=== PATIENT | male | born 1980 ===

== ENCOUNTER 2019-09-30 18:33 | Emergency (ER) | payer OTHER ==
--- NOTE | 2019-09-30 18:44 | Emergency Department Report ---
Blank Doc - Documentation Documentation: 39-year-old female that presents with left fingers lac. This initial assessment/diagnostic orders/clinical plan/treatment(s) is/are subject to change based on patient's health status, clinical progression and re- assessment by fellow clinical providers in the ED. Further treatment and workup at subsequent clinical providers discretion. Patient/guardians urged not to elope from the ED as their condition may be serious if not clinically assessed and managed. Initial orders include: 1- Patient sent to [facility] for further evaluation and treatment
[2019-09-30] MEDS ORDERED: ONDANSETRON 4 MG/2 ML INJ ONE (18:55)
[2019-09-30] MEDS ORDERED: MORPHINE 4 MG/1 ML INJ ONE (18:56)
[2019-09-30] MEDS ORDERED: MORPHINE 4 MG/1 ML INJ IV ONE (19:01)
[2019-09-30] MEDS ORDERED: ONDANSETRON 4 MG/2 ML INJ IV ONE (19:01)
[2019-09-30] MEDS ORDERED: TETANUS,DIPH,PERTUSS(ACELL) VACCINE 0.5 ML SYRINGE IM ONE (19:05)
--- NOTE | 2019-09-30 19:42 | XRay Report ---
LEFT HAND 3 VIEW(S) INDICATION / CLINICAL INFORMATION: MAIN: Lac to hand; Pt presents with c/o laceration to left index finger and left thumb on hand saw. COMPARISON: None available. FINDINGS: Soft tissue lacerations of the thumb and index finger on the volar/palmar side. No embedded radiopaqu e foreign body. There are foci of soft tissue gas. No displaced fracture. There are tiny ossific dens ities along the radial aspect of the thumb distal phalanx that probably represent bone fragments. The se are seen only on the lateral projection image. No malalignment of the phalanges to suggest a tendo n or caesar injury, although functional testing is advised. Signer Name: Gagan Quinones MD Signed: 09/30/2019 7:37 PM Workstation Name: [id number]
[2019-09-30 19:58] VITALS: BP 144/73
[2019-09-30] MEDS ORDERED: BUPIVACAINE/PF (0.25%) 2.5 MG/ML 30 ML VIAL INFILTRATI ONE (20:17)
[2019-09-30] MEDS ORDERED: BUPIVACAINE/PF (0.25%) 2.5 MG/ML 10 ML VIAL INFILTRATI ONE (20:17)
[2019-09-30] MEDS ORDERED: SODIUM CHLORIDE IRRI 500 ML 500 ML IR ONE (21:47)
[2019-09-30] MEDS ORDERED: SODIUM CHLORIDE 0.9% IRR 500 ML BOTTLE IR ONE (21:47)
--- NOTE | 2019-09-30 23:12 | Emergency Department Report ---
Upper Extremity - HPI Chief Complaint: Wound/Laceration Stated Complaint: LFT HAND CUT Time Seen by Provider: 09/30/19 18:43 ED Review of Systems ROS: Stated complaint: LFT HAND CUT Other details as noted in HPI Comment: All other systems reviewed and negative ED Past Medical Hx - Past Medical History Previous Medical History?: No - Surgical History Past Surgical History?: No - Social History Smoking Status: Never Smoker Substance Use Type: Alcohol Upper Extremity Exam - Exam General: Vital signs noted. No distress. Alert and acting appropriately. Head and Torso: No HEENT Abnormality, No Neck Tenderness, No Chest/Lungs Abnormality, No Abdominal Tenderness, No Back Tenderness Shoulder Exam: Yes Normal Range of Motion in Shoulder, No Shoulder Tenderness, No Clavicle Tenderness, No Shoulder Deformity, No AC Joint Tenderness Arm Exam: No Arm/Humerus Tenderness, No Arm Deformity Elbow: No Elbow Tenderness, No Normal Range of Motion in Elbow, No Elbow Deformity Forearm: No Forearm Tenderness, No Forearm Deformity, No Pain with Pronation, No Pain with Supination Wrist: Yes Normal ROM in Wrist, No Wrist Tenderness, No Wrist Deformity, No Snuffbox Tenderness, No Pain with Axial Thumb Compression Hand: Yes Hand Tenderness, Yes Normal ROM in Digit(s), Yes Tendon Dysfunction, No Hand Deformity, No Digit Tenderness, No Digit(s) Deformity CMS Exam: Yes Broken Skin, No Normal Distal Pulses, No Normal Capillary Refill, No Normal Distal Sensation Hand L/R Front: 1 - Severely irregular jagged macerated laceration to the thumb 3 cm 2 - Irregular deep laceration jagged 5 cm ED Course Vital Signs 09/30/19 09/30/19 09/30/19 18:43 19:09 19:39 Temperature 98.6 F Pulse Rate 74 Respiratory 20 18 18 Rate Blood Pressure 136/82 [Left] O2 Sat by Pulse 97 Oximetry 09/30/19 19:40 Temperature 98.1 F Pulse Rate 71 Respiratory 18 Rate Blood Pressure 144/73 [Left] O2 Sat by Pulse 95 Oximetry - Procedure Description Procedures done: There was prepped and draped in sterile fashion and wound was irrigated with copious amount of saline. Anesthesia achieved with bupivacaine 0.25% the wound edges were revised sutures simple interrupted fashion for partial wound closure unable achieve approximation due to degree of loss skin and wound with [place] was placed over the avulsed aspect of the lip of the laceration. Critical care attestation.: If time is entered above; I have spent that time in minutes in the direct care of this critically ill patient, excluding procedure time. ED Disposition Clinical Impression: Finger laceration involving tendon, Contact with powered saw as cause of accidental injury Disposition: DC- TO HOME OR SELFCARE Is pt being admited?: No Does the pt Need Aspirin: No Condition: Stable Instructions: Suture Care (ED), Finger Laceration (ED) Additional Instructions: Please be sure to follow-up with the [facility] surgeon as we discussed with max 24 to 48 hours. Referrals: [facility] [Provider Group] - 24 Hours Print Language: LATVIAN
== END 2019-09-30 23:45 | disposition home or self-care (01) ==
LOC: EDSEX → ED 18:33
DX: S61.211A Laceration without foreign body of left index finger without damage to nail, initial encounter (principal); S61.012A Laceration without foreign body of left thumb without damage to nail, initial encounter; W45.8XXA Other foreign body or object entering through skin, initial encounter; Y93.89 Activity, other specified; Y92.89 Other specified places as the place of occurrence of the external cause; Y99.8 Other external cause status
CPT/HCPCS: 12004; 73130; 96365; 96375; 99283; J0690; J2270; J2405; 90715